=== PATIENT | female | born 1990 | race Caucasian/White ===

== ENCOUNTER → 2016-05-10 | Outpatient (CLI) | payer OTHER ==
[~2016-05-10] MED LIST: POLY335025; PRENTAB26 PO; ZNTT/150 PO
== END | disposition home or self-care (01) ==
LOC: C.LABSPEC 15:03
PROVIDERS: ATTEND Obstetrics & Gynecology
DX: Z34.83 Encounter for supervision of other normal pregnancy, third trimester (principal)

== ENCOUNTER 2016-05-29 20:21 | Inpatient (IN) | payer BC, OTHER ==
[~2016-05-29] VITALS: Ht 175.3 cm; Wt 100.0 kg
[~2016-05-29 20:21] MED LIST changes: -POLY335025; -ZNTT/150 PO
[2016-05-29] MEDS ORDERED: LACTATED RINGER'S 1000ML 1,000 ML IV PRN (20:27)
[2016-05-29] MEDS ORDERED: DINOPROSTONE 10 MG INSERT PV ONE (20:30)
[2016-05-29] MEDS ORDERED: ACETAMINOPHEN 500 MG TAB PO PRN (21:30)
[2016-05-29] MEDS ORDERED: BUTORPHANOL TARTRATE 1 MG/ML VIAL IV PRN (21:30)
[2016-05-29] MEDS ORDERED: MISOPROSTOLTAB 50 MCG TAB PO ONE (21:30)
[2016-05-29 22:10] VITALS: Ht 175.3 cm; Wt 100.0 kg
[2016-05-29] MEDS ORDERED: POLY335025 (22:15)
[2016-05-29] MEDS ORDERED: ZNTT/150 PO (22:15)
[2016-05-29 22:52] LABS: HEMATOCRIT 34.9 % (37-47); MEAN CELL VOLUME 83.7 fL (80-100); MEAN CORPUSCULAR HEMOGLOBIN 28.1 pg (25-34); MEAN CORPUSCULAR HGB CONC 33.5 g/dl (32-36); MEAN PLATELET VOLUME 10.8 fL (7.4-10.4); PLATELET COUNT 154 K/uL (130-400); RED BLOOD COUNT 4.17 M/uL (4.2-5.4); WHITE BLOOD COUNT 9.75 K/uL (4.8-10.8)
[2016-05-30] MEDS ORDERED: MISOPROSTOLTAB 50 MCG TAB PO ONE (07:45)
[2016-05-30] MEDS ORDERED: LACTATED RINGER'S 1000ML 500 ML IV PRN ×2 (13:35→16:15)
[2016-05-30] MEDS ORDERED: OXYTOCIN 30 UNITS/500ML NSS IV PRN ×2 (13:45→20:30)
[2016-05-30] MEDS: LACTATED RINGER'S 1000ML 1,000 ML IV SCH ×2 (14:17→16:15)
[2016-05-30] MEDS ORDERED: EpHEDrine SULFATE INJ 50 MG/ML AMP ONE (15:34)
[2016-05-30] MEDS ORDERED: BUPIVACAINE 0.25% 30 ML VIAL ONE (15:34)
[2016-05-30] MEDS ORDERED: FENTANYL CITRATE INJ 50 MCG/1 ML 2 ML VIAL ONE (15:34)
[2016-05-30] MEDS ORDERED: FENTANYL 2MCG/ML ROPIV 1.25MG/ML 100ML BAG EPI ONE (15:35)
[2016-05-30] MEDS ORDERED: NALBUPHINE HCL INJ 10 MG/ML AMP IV PRN (16:15)
[2016-05-30] MEDS ORDERED: FENTANYL 2MCG/ML ROPIV 1.25MG/ML 100ML BAG EPI PRN (16:15)
[2016-05-30] MEDS ORDERED: NALOXONE HCL INJ 0.4 MG/1 ML VIAL/CARP IV PRN (16:15)
[2016-05-30] MEDS ORDERED: ONDANSETRON INJ 2 MG/ML 2 ML VIAL IV PRN (16:15)
[2016-05-30] MEDS ORDERED: DiphenhydrAMINE HCL 50 MG/ML VIAL IV PRN (16:15)
[2016-05-30] MEDS ORDERED: EpHEDrine SULFATE INJ 50 MG/ML AMP IV PRN (16:15)
[2016-05-30] MEDS ORDERED: ACETAMINOPHEN/CODEINE 300/30MG TAB PO PRN ×2 (20:30)
[2016-05-30] MEDS ORDERED: BENZOCAINE 20% AER SPR 82.5 GM CAN EXT PRN (20:30)
[2016-05-30] MEDS ORDERED: SUPERCREAM 0.870 % 15GM JAR EXT PRN (20:30)
[2016-05-30] MEDS ORDERED: ACETAMINOPHEN 325 MG TAB PO PRN (20:30)
[2016-05-30] MEDS ORDERED: HYDROCORTISONE ACETATE 25 MG SUPP PR PRN (20:30)
[2016-05-30] MEDS ORDERED: LANOLIN OINT EXT PRN ×2 (20:30)
[2016-05-30] MEDS ORDERED: DIPHTHERIA/TETANUS/PERTUSSIS 0.5 ML SYR/VIAL IM. ONE (20:30)
[2016-05-30] MEDS ORDERED: IBUPROFEN 600 MG TAB PO PRN (20:30)
[2016-05-30] MEDS ORDERED: OXYCODONE/ACETAMINOPHEN 5-325 TAB PO PRN (20:30)
--- NOTE | 2016-05-30 21:31 | Anesthesia Procedure Note ---
Anesthesia Epidural Removal Nt Date & Time May 30, 2016 at 21:30 Vital Signs Pain Intensity: 0.0 Notes Mental Status: alert / awake / arousable, participated in evaluation Nausea / Vomiting: adequately controlled Pain: adequately controlled Airway Patency, RR, SpO2: stable & adequate BP & HR: stable & adequate Hydration State: stable & adequate Neuraxial Anesthesia: was administered, sensory block is resolving Anesthetic Complications: no major complications apparent, pt satisfied with anesthetic care Epidural: removed without complications, with tip intact
[2016-05-30 23:30] VITALS: BP 127/72; PULSE 97; TEMP 36.5
--- NOTE | 2016-05-31 00:31 | DELIVERY SUMMARY ---
DATE OF OPERATION: 05/29/2016 The patient is a 26-year-old 3, para 3, in good general health. Blood type is O positive. Rubella immune. Beta strep negative. Had an uneventful course. Requested induction at 39 weeks. Prior in 2015, she had a girl, 8 pounds 11 ounces. So she was induced with suspicion of macrosomia. She was brought in. She had no contractions on admission. She was given p.o. Cytotec 50 mcg, and about 7 or 8 hours later, contractions petered out. She was given another dose of 50 mcg Cytotec, and at about 1:30 p.m. the day that she delivered, she was started on IV Pitocin. Pitocin was gradually turned up and she developed a good solid pattern. When she was about 5-6, she requested and received epidural anesthesia. She obtained good pain relief. Following this, the membranes were ruptured surgically. She went to full dilatation, and with about 3 pushes, pushed out a live male infant, right occiput posterior, over an intact perineum. There was nuchal cord x1 which was easily reduced over the head. Body was delivered without difficulty. was suctioned through the mouth and the nose. Cord was clamped, cut by the father. Cord blood was taken. With IV Pitocin running, the placenta was removed intact. Inspection of the perineum revealed no lacerations and estimated blood loss was 200 mL. My own estimation 1- and 5-minute Apgars were 9 and 10 respectively. I attest to the content of the Intraoperative Record and any orders documented therein. Any exceptio ns are noted below.
[2016-05-31 04:30] VITALS: BP 116/71; PULSE 81; TEMP 36.6
[2016-05-31 06:36] LABS: HEMATOCRIT 34.3 % (37-47)
[2016-05-31 07:47] VITALS: BP 118/72; PULSE 75; TEMP 36.3; O2SAT 99
[2016-05-31 07:55] VITALS: O2SAT 99
[2016-05-31] MEDS ORDERED: PRENATAL VITAMIN TAB PO SCH (08:00)
[2016-05-31] MEDS ORDERED: FERROUS SULFATE 325 MG TAB PO SCH (08:00)
[2016-05-31] MEDS: DOCUSATE SODIUM 100 MG CAP PO SCH ×2 (08:42→20:00)
--- NOTE | 2016-05-31 08:54 | Progress Note ---
Subjective May 31, 2016. Subjective conversation w/ patient Ambulation: ambulating normally Voiding: no voiding problems Passing Gas: Yes Diet Tolerance: Regular Diet Lochia: Small Feeding Type: Breast Feeding Review of Systems Constitutional: + fever Objective Vital Signs Date Time Temp Pulse Resp B/P Pulse Ox O2 Delivery O2 Flow Rate FiO2 05/31/16 07:55 99 Room Air 05/31/16 07:47 36.3 75 20 118/72 99 Room Air 05/31/16 04:30 36.6 81 18 116/71 Room Air 05/30/16 23:30 Room Air 05/30/16 23:30 36.5 97 18 127/72 Room Air Physical Exam General Appearance: WELL-APPEARING Fundus: Firm, Non-Tender Extremities: no pedal edema, no calf tenderness Laboratory Results Last 24 Hours Test 05/31/16 06:15 Hemoglobin 11.4 g/dL Hematocrit 34.3 % Assessment and Plan Post- Day#: 1
[2016-05-31 11:08] VITALS: BP 120/71; PULSE 67; TEMP 36.3; O2SAT 99
[2016-05-31 16:30] VITALS: BP 117/69; PULSE 89; TEMP 36.4
--- NOTE | 2016-05-31 19:39 | Discharge Instructions ---
Discharge Instructions Date of Service May 31, 2016. Admission Reason for Admission: Cervidil Discharge Discharge Diagnosis / Problem: macrosomia Discharge Goals Goal(s): Routine recovery after delivery Activity Recommendations Activity Limitations: as noted below ACTIVITY RECOMMENDATIONS: * Gradual return to full activity over the next 2-3 weeks. * No lifting - nothing heavier than baby over the next 2-3 weeks. * Do not engage in vigorous exercise, sexual activity or sports until cleared by your physician. * Do not drive or operate any motorized equipment until cleared by your physician. * You may shower/bathe daily. DIET: Resume Previous Diet If Breast-feeding: * Increase caloric intake by 500 calories, eat 3 well balanced meals, 2 high protein snacks a day and drink 6-8 8oz. glasses of fluid per day. BREAST CARE: If you are not breast feeding: * Wear a supportive bra 24 hours a day for one to two weeks. * Avoid stimulating your breasts and nipples as much as possible during the first few weeks after delivery. * When taking a shower, have the warm water hit your back, not breasts. * When your breasts feel full, apply ice packs. Usually three to four times a day helps ease the discomfort. * Take a mild pain medication (Tylenol / Motrin) when you are uncomfortable. If breast feeding: * Use breast milk to lubricate nipples. Lansinoh cream may be used for sore nipples. You do not need to remove cream prior to breast feeding. If using a different brand of cream, check the label for directions regarding removal of cream prior to nursing. * Wear a supportive bra. * If having problems with breasts or breast feeding, call a [employer] sales consultant or your health care provider. OVER THE COUNTER MEDICATION: * For discomfort or pain, you may use Acetaminophen (Tylenol), Ibuprofen (Advil ), or Naproxen (Aleve) following the package directions. * For constipation you may use Colace following the package directions. SPECIAL CARE INSTRUCTIONS: * Vaginal rest (no tampons, douching, intercourse) until after doctor 's visit. * control as discussed with doctor. * Verbalizes understanding of car seat law as reviewed with patient nursing. * Car Seat hand-out given and reviewed with patient by nursing. * Shaken baby information reviewed with patient by nursing. Call you doctor if: * Temperature greater than or equal to 100.4 degrees F or 38.0 degrees C. Take your temperature twice daily for a week. * Bleeding becomes heavier than the heaviest part of your period - saturating a sanitary pad within an hour. * Passing large clots. * Bleeding has a foul smelling odor. * Signs and symptoms of phlebitis: leg pain, warm, red or swollen area on leg. * "Baby Blues" lasting longer than two weeks. ++ If you have had a and incision has increased pain, redness, swelling, presence of any drainage, or if the incision starts to open up. If you have any questions or concerns, call your health care practitioner at [phone]. FOLLOW-UP VISIT: Please call the office at to schedule a 6 week examination. . Current Hospital Diet Patient's current hospital diet: Regular OB Diet Discharge Diet Recommended Diet: Regular Diet Pending Studies Studies pending at discharge: no Medical Emergencies . Who to Call and When: Medical Emergencies: If at any time you feel your situation is an emergency, please call 911 immediately. . Non-Emergent Contact Non-Emergency issues call your: Yard Worker Call Non-Emergent contact if: temperature is above 100.5 . . "Provider Documentation" section prepared by Jones Calderon. VTE Core Measure Inpt VTE Proph given/why not?: Treatment not indicated
[2016-05-31 20:00] VITALS: BP_DIAS 69; PULSE 89; TEMP 36.4
[2016-05-31] MEDS ORDERED: BISACODYL 5 MG TABEC PO SCH (20:00)
[2016-06-01] MEDS ORDERED: BISACODYL 10 MG SUPP PR PRN (07:00)
== END 2016-05-31 21:45 | disposition home or self-care (01) | DRG 775 ==
LOC: C.LD 20:21 → C.OPB 20:21 → C.LD 20:29 → C.OBG 05-30 23:17
PROVIDERS: ADMIT Obstetrics & Gynecology; ATTEND Obstetrics & Gynecology
PROC: 3E033VJ Introduction of Other Hormone into Peripheral Vein, Percutaneous Approach (ICD-10-PCS; principal; 2016-05-30)
PROC: 10907ZC Drainage of Amniotic Fluid, Therapeutic from Products of Conception, Via Natural or Artificial Opening (ICD-10-PCS; principal; 2016-05-30)
PROC: 10E0XZZ Delivery of Products of Conception, External Approach (ICD-10-PCS; principal; 2016-05-30)
PROC: 3E0P7GC Introduction of Other Therapeutic Substance into Female Reproductive, Via Natural or Artificial Opening (ICD-10-PCS; principal; 2016-05-30)
DX: O36.63X0 Maternal care for excessive fetal growth, third trimester, not applicable or unspecified (principal); Z37.0 Single live birth; O69.81X0 Labor and delivery complicated by cord around neck, without compression, not applicable or unspecified; Z3A.39 39 weeks gestation of pregnancy

== ENCOUNTER → 2016-07-12 | Outpatient (CLI) | payer BC, OTHER ==
[~2016-07-12] MED LIST changes: +POLY335025; +ZNTT/150 PO
== END | disposition home or self-care (01) ==
LOC: C.PAPS 09:01
PROVIDERS: ATTEND Obstetrics & Gynecology
DX: Z39.2 Encounter for routine postpartum follow-up (principal)

== ENCOUNTER 2017-06-10 19:19 | Emergency (ER) | payer OTHER, BC ==
[~2017-06-10] VITALS: Ht 177.8 cm; Wt 68.3 kg
[~2017-06-10 19:19] MED LIST changes: +RANI150T85 PO; -ZNTT/150 PO
[2017-06-10 19:26] VITALS: TEMP 36.8; Ht 177.8 cm; Wt 68.3 kg
[2017-06-10 20:39] LABS: BASO % 0.3 %; BASO ABS # 0.02 K/uL (0-0.2); EOS % 0.6 %; EOS ABS # 0.04 K/uL (0-0.5); HEMATOCRIT 41.7 % (37-47); HEMOGLOBIN 13.9 g/dL (12.0-16.0); IG# 0.01 K/uL (0.00-0.02); LYMPH % 33.8 %; LYMPH ABS # 2.09 K/uL (1.2-3.4); MEAN CELL VOLUME 87.1 fL (80-100); MEAN CORPUSCULAR HGB CONC 33.3 g/dl (32-36); MEAN PLATELET VOLUME 10.6 fL (7.4-10.4); MONO % 7.9 %; MONO ABS # 0.49 K/uL (0.11-0.59); NEUT % 57.2 %; NEUT ABS # 3.54 K/uL (1.4-6.5); PLATELET COUNT 161 K/uL (130-400); RED CELL DISTRIBUTION WIDTH CV 13.1 % (11.5-14.5); WHITE BLOOD COUNT 6.19 K/uL (4.8-10.8)
[2017-06-10 20:42] LABS: ALBUMIN 4.4 gm/dl (3.4-5.0); CREATININE 0.71 mg/dl (0.60-1.20); POTASSIUM 4.1 mmol/L (3.5-5.1)
[2017-06-10 20:45] LABS: TOTAL PROTEIN 7.8 gm/dl (6.4-8.2)
--- NOTE | 2017-06-10 21:12 | EMERGENCY ROOM VISIT NOTE ---
History First contact with patient: 19:30 Chief Complaint: OTHER COMPLAINT Stated Complaint: BLOOD EXPOSURE AT WORK- History of Present Illness The patient is a 27 year old female who presents to the Emergency Room via private vehicle accompanied by male with complaints of "blood exposure at work" . 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 She notes that she immediately rinsed the left eye. The inmate was known to be hepatitis C positive. She believes that her tetanus is up-to-date and denies chance of . While at their facility it was deemed significant and she was given Isentress and Truvada. Review of Systems A complete 6-point Review of Systems was discussed with the patient, with pertinent positives and negatives listed in the History of Present Illness. All remaining Review of Systems questions can be considered negative unless otherwise specified. Past Medical/Surgical History Medical Problems: (1) Term Social History Smoking Status: Never Smoker Current/Historical Medications Scheduled Multivit/Min/Iron/Fol Ac/Pren ( Vitamin), 1 TAB PO DAILY Ranitidine (Zantac), 150 MG PO BID Miscellaneous Medications Polyethylene Glycol 3350 (Miralax) Physical Exam Vital Signs Date Time Temp Pulse Resp B/P (MAP) Pulse Ox O2 Delivery O2 Flow Rate FiO2 06/10/17 21:23 80 16 136/76 100 06/10/17 19:26 36.8 93 16 128/72 100 Room Air Physical Exam VITAL SIGNS - Vital signs and nursing notes were reviewed. Stable. GENERAL - 27-year-old female appearing her stated age who is in no acute distress. Communicates well with provider and answers questions appropriately. SKIN - Without rashes. Skin overlying the left eye is unremarkable. HEAD - NC/AT. EYES - PERRL with EOMI bilaterally. Sclera anicteric. No retained blood noted in the left eye. EARS - No deformities of external structures noted on gross examination bilaterally. NOSE - Midline and without cyanosis. No epistaxis or purulent drainage noted. Septum midline without deviation or septal hematoma noted. MOUTH/OROPHARYNX - Without perioral cyanosis. Medical Decision & Procedures Laboratory Results 06/10/17 20:00 Red Blood Count 4.79, Mean Corpuscular Volume 87.1, Mean Corpuscular Hemoglobin 29.0, Mean Corpuscular Hemoglobin Concent 33.3, Mean Platelet Volume 10.6, Neutrophils (%) (Auto) 57.2, Lymphocytes (%) (Auto) 33.8, Monocytes (%) (Auto) 7.9, Eosinophils (%) (Auto) 0.6, Basophils (%) (Auto) 0.3, Neutrophils # (Auto) 3.54, Lymphocytes # (Auto) 2.09, Monocytes # (Auto) 0.49, Eosinophils # (Auto) 0.04, Basophils # (Auto) 0.02 06/10/17 20:00 Test 06/10/17 20:00 White Blood Count 6.19 K/uL (4.8-10.8) Red Blood Count 4.79 M/uL (4.2-5.4) Hemoglobin 13.9 g/dL (12.0-16.0) Hematocrit 41.7 % (37-47) Mean Corpuscular Volume 87.1 fL (80-100) Mean Corpuscular Hemoglobin 29.0 pg (25-34) Mean Corpuscular Hemoglobin Concent 33.3 g/dl (32-36) Platelet Count 161 K/uL (130-400) Mean Platelet Volume 10.6 fL (7.4-10.4) Neutrophils (%) (Auto) 57.2 % Lymphocytes (%) (Auto) 33.8 % Monocytes (%) (Auto) 7.9 % Eosinophils (%) (Auto) 0.6 % Basophils (%) (Auto) 0.3 % Neutrophils # (Auto) 3.54 K/uL (1.4-6.5) Lymphocytes # (Auto) 2.09 K/uL (1.2-3.4) Monocytes # (Auto) 0.49 K/uL (0.11-0.59) Eosinophils # (Auto) 0.04 K/uL (0-0.5) Basophils # (Auto) 0.02 K/uL (0-0.2) RDW Standard Deviation 42.0 fL (36.4-46.3) RDW Coefficient of Variation 13.1 % (11.5-14.5) Immature Granulocyte % (Auto) 0.2 % Immature Granulocyte # (Auto) 0.01 K/uL (0.00-0.02) Anion Gap 4.0 mmol/L (3-11) Est Creatinine Clear Calc Drug Dose 129.5 ml/min Estimated GFR () 136.2 Estimated GFR (Non- 117.6 BUN/Creatinine Ratio 11.5 (10-20) Calcium Level 9.0 mg/dl (8.5-10.1) Total Bilirubin 0.4 mg/dl (0.2-1) Aspartate Amino Transf (AST/SGOT) 17 U/L (15-37) Alanine Aminotransferase (ALT/SGPT) 25 U/L (12-78) Alkaline Phosphatase 70 U/L (45-117) Total Protein 7.8 gm/dl (6.4-8.2) Albumin 4.4 gm/dl (3.4-5.0) Globulin 3.4 gm/dl (2.5-4.0) Albumin/Globulin Ratio 1.3 (0.9-2) Human Chorionic Gonadotropin, Qual NEG (NEG) Hepatitis B Surface Antigen NEG (NEG) Hepatitis B Surface Antibody POS Hepatitis C Antibody NEG (NEG) HIV (1&2) Ab and P24 Ag, 4th Gener NEG (NEG) Medical Decision Patient was seen and evaluated as above in room D6. Review was performed of nursing notes and vital signs. After obtaining a thorough history and physical examination benefit versus risk of pursuing testing was discussed. I did try and call the number listed in the patient's paperwork to identify if this was a significant exposure via the hotline. They were closed. The hours must have changed. However I will do this significant. Especially given the population. She already had Isentress and Truvada initiated for a 4 day supply. I did extend these for 7 days as well as 28 days per instructions under Department of correction guidelines. This was faxed to [email or web address]. Baseline testing was performed. She consented. No underlying blood pathology identified. She is to follow with occupational health. She is to return with worsening. The patient was educated upon management, had questions answered prior to discharge , and was discharged home in good condition. In the evaluation and treatment of this patient the following differential diagnoses were entertained: Occupational health exposure, among others. Impression Primary Impression: Exposure to blood or body fluid Departure Information Dispostion Home / Self-Care Condition GOOD Referrals Manish Brown M.D. (PCP) Patient Instructions My [facility] Additional Instructions You were seen in the emergency department for exposure to blood/body fluid. You have submitted to baseline testing. At this time I do recommend taking Isentress and Truvada. The Truvada is 1 tablet daily. Isentress is 1 tablet every 12 hours. If the source patient has not tested positive/negative they will have the prescription filled and likely send you the remainder of the 7 day total supply to your house. Just continue as previously prescribed. Please follow with occupational health at work. It may be necessary to have the prescription filled for the remainder(21 days) so that you can complete the 28 day course of HIV prophylaxis. Again when you return to work tomorrow please ask who they would prefer you follow with and for results as well. If they have questions regarding test results please call back here to [phone] Thank you for your time.
[2017-06-10 21:23] VITALS: BP 136/76; PULSE 80; O2SAT 100
[2017-06-10 21:35] LABS: HEP C IGG 13 YRS+OLDER_RFLX NEG (NEG)
== END 2017-06-10 21:24 | disposition home or self-care (01) ==
LOC: C.EDB 19:22 → C.EDD 21:24
DX: Z77.21 Contact with and (suspected) exposure to potentially hazardous body fluids (principal)